=== PATIENT | male | born 1990 | race Caucasian/White ===

== ENCOUNTER 2018-05-07 06:53 | Emergency (ER) | payer BC ==
[~2018-05-07] VITALS: Ht 177.8 cm; Wt 80.2 kg
[2018-05-07 07:20] LABS: BASOPHIL (%) 0.6 % (0-1); BASOPHIL COUNT 0.1 K/uL (0-0.1); EOSINOPHIL (%) 2.4 % (0-5); EOSINOPHIL COUNT 0.2 K/uL (0-0.3); HEMOGLOBIN 15.2 G/DL (12.5-16.6); IMMATURE GRANULOCYTE (%) 0.3 % (0.0-0.7); LYMPHOCYTE COUNT 2.9 K/uL (1.0-2.8); MCHC 35.3 G/DL (30.0-36.0); MCV 93.3 FL (86-99); MONOCYTE (%) 9.5 % (3-12); MONOCYTE COUNT 0.8 K/uL (0-0.8); NEUTROPHIL (%) 51.2 % (45-76); NEUTROPHIL COUNT 4.1 K/uL (1.8-6.4); PLATELET COUNT 180 K/uL (156-360); RBC DIS.WIDTH-CV 11.9 % (11.8-14.6); RED BLOOD COUNT 4.61 M/uL (4.00-5.50)
[2018-05-07 07:51] LABS: ALBUMIN 4.7 G/DL (3.2-4.8); ALKALINE PHOSPHATASE 35 IU/L (3-129); ALT (GPT) 16 IU/L (3-49); AST (GOT) 26 IU/L (2-34); CHLORIDE 108 MEQ/L (99-109); CREATININE 0.8 MG/DL (0.6-1.3); GFR ESTIMATE (CALCULATED) > 59 mL/min/ (58.99-99999); GLUCOSE 100 mg/dL (70-99); POTASSIUM 3.7 MEQ/L (3.7-5.4); SERUM ETHYL ALCOHOL 238 mg/dL; SODIUM 142 MEQ/L (136-147); TOTAL BILIRUBIN 0.4 MG/DL (0.0-1.0); TOTAL PROTEIN 7.2 G/DL (6.4-8.3); UREA NITROGEN (BUN) 13 mg/dL (9-23)
[2018-05-07 08:23] LABS: AMPHETAMINE NEGATIVE (500 ng/mL); BARBITURATES NEGATIVE (200 ng/mL); BENZODIAZEPINES NEGATIVE (150 ng/mL); BUPRENORPHINE NEGATIVE (10 ng/mL); COCAINE NEGATIVE (150 ng/mL); METHADONE NEGATIVE (200 ng/mL); METHAMPHETAMINE NEGATIVE (500 ng/mL); OPIATES (MORPHINE) NEGATIVE (100 ng/mL); OXYCODONE NEGATIVE (100 ng/mL); PHENCYCLIDINE NEGATIVE (25 ng/mL); PROPOXYPHENE NEGATIVE (300 ng/mL); THC CANNABINOIDS NEGATIVE (50 ng/mL); TRICYCLIC ANTIDEPRESSANTS NEGATIVE (300 ng/mL)
[2018-05-07 10:19] VITALS: BP 121/77
== END 2018-05-07 10:19 | disposition home or self-care (01) ==
LOC: EME 06:53 → TRA 06:53
PROVIDERS: Emergency Medicine
DX: F10.129 Alcohol abuse with intoxication, unspecified (principal); S02.2XXA Fracture of nasal bones, initial encounter for closed fracture; S30.811A Abrasion of abdominal wall, initial encounter; S50.312A Abrasion of left elbow, initial encounter; M54.2 Cervicalgia; M54.9 Dorsalgia, unspecified; M25.559 Pain in unspecified hip; W13.4XXA Fall from, out of or through window, initial encounter; M47.892 Other spondylosis, cervical region; M51.36 Other intervertebral disc degeneration, lumbar region; F17.200 Nicotine dependence, unspecified, uncomplicated; Y90.8 Blood alcohol level of 240 mg/100 ml or more
CPT/HCPCS: 70450; 71260; 72125; 72129; 72132; 72141; 73080; 74177; 80053; 85025; 99281; 99285; G0480; J7030